=== PATIENT | female | born 1960 ===

== ENCOUNTER 2016-10-12 20:58 | Emergency (ER) | payer OTHER ==
[2016-10-12 20:58] VITALS: BMI 25.7
[2016-10-12 21:05] VITALS: BP 150/75; PULSE 82; RESP 18; TEMP 98; O2SAT 100
== END 2016-10-12 23:46 | disposition left against medical advice (07) ==
LOC: H.ER 20:58
DX: Z02.89 Encounter for other administrative examinations (principal)

== ENCOUNTER 2018-06-21 11:50 | Emergency (ER) | payer OTHER ==
[2018-06-21 12:00] VITALS: BMI 21.7
[2018-06-21 12:03] VITALS: RESP 18; TEMP 98
[2018-06-21 12:11] VITALS: O2SAT 98
[2018-06-21] MEDS ORDERED: Sodium Chloride 0.9% 1,000 ML IV STA (12:43)
--- NOTE | 2018-06-21 12:49 | ED PDOC ---
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 Went to the [facility] ED on monday had bloodwork performed told gastritis and Rx famotidine and omeprazole which she's now taking w mild improvement of pain but nausea and dizziness persisting. Has hx lupus takes plaquenil, also HTN meds. Denies bloody, dark or tarry stools, notes constipation. No vomiting but +nausea. Denies chest pain, SOB, fever, cough, neck pain or rash. Past Medical History Reviewed: Historical Data, Nursing Documentation, Vital Signs Vital Signs: Last Vital Signs Temp 98 F 06/21/18 12:00 Pulse 78 06/21/18 12:00 Resp 18 06/21/18 12:00 BP 168/78 H 06/21/18 12:00 Pulse Ox 98 06/21/18 12:08 - Medical History PMH: HTN, Hypercholesterolemia Denies: Alzheimer's Disease, Asthma, Atrial Fibrillation, Cardia Arrhythmia, COPD, Chronic Kidney Disease Other PMH: lupus - Surgical History Surgical History: Denies: CABG - Family History Family History: States: Unknown Family Hx - Living Arrangements Living Arrangements: With Family - Social History Current smoker - smoking cessation education provided: No - Immunization History Hx Tetanus Toxoid Vaccination: No Hx Influenza Vaccination: Yes Hx Pneumococcal Vaccination: No - Home Medications Home Medications: Ambulatory Orders Medication Instructions Recorded Hydroxychloroquine Sulfate 200 mg PO BID 10/24/14 [Plaquenil] Meloxicam [Mobic] 15 mg PO DAILY 10/24/14 Losartan/Hydrochlorothiazide 1 tab PO DAILY 12/10/15 [Hyzaar 50-12.5 Tablet] Naproxen [Naprosyn] 500 mg PO Q12H #20 tab 12/10/15 Oxycodone HCl/Acetaminophen 1 tab PO Q8H #10 tab 12/10/15 [Percocet 325 mg-5 mg] RX: Cyclobenzaprine [Flexeril] 10 mg PO HS 12/10/15 RX: Gabapentin [Neurontin] 300 mg PO HS 12/10/15 RX: Naproxen [Naprosyn] 500 mg PO BID 12/10/15 - Allergies Allergies/Adverse Reactions: Allergies Allergy/AdvReac Type Severity Reaction Status Date / Time No Known Allergies Allergy Verified 06/21/18 12:08 Review of Systems Constitutional: Positive for: Weakness. Negative for: Chills, Sweats, Weight loss Eyes: Negative for: Vision Change ENT: Negative for: Ear Pain, Ear Discharge, Throat Pain Cardiovascular: Negative for: Chest Pain, Palpitations Respiratory: Negative for: Cough, Shortness of Breath Gastrointestinal: Positive for: Nausea, Abdominal Pain. Negative for: Vomiting, Diarrhea, Constipation, Melena, Hematochezia, Hematemesis Genitourinary Female: Negative for: Dysuria Musculoskeletal: Negative for: Neck Pain, Back Pain Neurological: Positive for: Headache, Dizziness. Negative for: Weakness, Change in Speech, Confusion, Seizures Psych: Negative for: Anxiety Physical Exam - Reviewed Nursing Documentation Reviewed: Yes Vital Signs Reviewed: Yes - Physical Exam Appears: Positive for: Well, Non-toxic, No Acute Distress Head Exam: Positive for: ATRAUMATIC, NORMAL INSPECTION, NORMOCEPHALIC Skin: Positive for: Normal Color, Warm, DRY Eye Exam: Positive for: Normal appearance, EOMI, PERRL. Negative for: Scleral icterus ENT: Positive for: Normal ENT Inspection Neck: Positive for: Normal, Painless ROM Cardiovascular/Chest: Positive for: Regular Rate, Rhythm Respiratory: Positive for: CNT, Normal Breath Sounds Pulses-Radial (L): 3+/4+ Pulses-Radial (R): 3+/4+ Gastrointestinal/Abdominal: Positive for: Normal Exam, Soft. Negative for: Tenderness, Guarding Extremity: Positive for: Normal ROM. Negative for: Tenderness Neurologic/Psych: Positive for: Alert, Oriented. Negative for: Motor/Sensory Deficits - Laboratory Results Result Diagrams: 06/21/18 12:51 06/21/18 12:51 - ECG O2 Sat by Pulse Oximetry: 98 Disposition - Clinical Impression Clinical Impression: Abdominal pain, Gastritis - Patient ED Disposition Is Patient to be Admitted: Transfer of Care - Disposition Disposition: Transfer of Care Disposition Time: 15:00 Condition: IMPROVED Additional Instructions: follow up with your primary doctor Dr Lorenzo in 1-2 days take the anti acid medication you were given at [facility] Name return to the ED with any worsening or concerning symptoms Instructions: Gastritis, Stomach Ache and Stomach Upset Forms: [email or web address] (Wallisian) Patient Signed Over To: Lawrence Whatley
[2018-06-21 12:56] LABS: BASO % 0.6 % (0.0-2.0); EOS % 0.3 % (0.0-4.0); HEMOGLOBIN 12.9 g/dL (12.0-16.0); LYMPH # 0.9 K/uL (1.0-4.3); MEAN CELL VOLUME 83.7 fl (81.0-99.0); MEAN CORPUSCULAR HEMOGLOBIN 27.8 pg (27.0-31.0); MEAN CORPUSCULAR HGB CONC 33.3 g/dL (33.0-37.0); MEAN PLATELET VOLUME 7.1 fl (7.2-11.7); MONO # 0.3 K/uL (0.0-0.8); MONO % 5.3 % (0.0-10.0); NEUT # 4.3 K/uL (1.8-7.0); NEUT % 76.8 % (50.0-75.0); NRBC % 0.2 % (0.0-0.0); RBC 4.62 Mil/uL (3.80-5.20); RED CELL DISTRIBUTION WIDTH 13.8 % (11.5-14.5); WHITE BLOOD COUNT 5.6 K/uL (4.8-10.8)
[2018-06-21 13:05] LABS: ALB/GLOB RATIO 1.3 (1.0-2.1); ALBUMIN 4.7 g/dL (3.5-5.0); ALT/SGPT 25 U/L (9-52); AST/SGOT 29 U/L (14-36); BLOOD UREA NITROGEN 11 mg/dl (7-17); CALCIUM 9.7 mg/dL (8.4-10.2); GFR NON-AFRICAN AMERICAN > 60
[2018-06-21 14:00] LABS: URINE BILIRUBIN NEGATIVE (NEGATIVE); URINE CLARITY CLEAR (Clear); URINE COLOR STRAW (YELLOW); URINE GLUCOSE (UA) NEG (NEGATIVE); URINE LEUKOCYTE ESTERASE NEG Leu/uL (Negative); URINE PROTEIN NEGATIVE (NEGATIVE); URINE UROBILINOGEN 0.2-1.0 mg/dL (0.2-1.0)
[2018-06-21 14:01] LABS: URINE BLOOD TRACE (NEGATIVE)
--- NOTE | 2018-06-21 15:43 | RAD ---
Date of service: 06/21/2018 HISTORY: chest pain/ r/o infiltrate COMPARISON: 10/24/2014. TECHNIQUE: Chest PA and lateral FINDINGS: LUNGS: No active pulmonary disease. PLEURA: No significant pleural effusion identified. No pneumothorax apparent. CARDIOVASCULAR: No aortic atherosclerotic calcification present. Normal cardiac size. No pulmonary vascular congestion. OSSEOUS STRUCTURES: No significant abnormalities. VISUALIZED UPPER ABDOMEN: Normal. OTHER FINDINGS: None. IMPRESSION: No active disease. No significant interval change compared to the prior examination(s).
--- NOTE | 2018-06-21 15:55 | US ---
Date of service: 06/21/2018 HISTORY: upper abd pain x2 wks COMPARISON: 01/11/2014 abdominal ultrasound TECHNIQUE: Sonographic evaluation of the abdomen. FINDINGS: LIVER: Measures 10.1 cm. Normal echogenicity of the liver parenchyma. No mass. No intrahepatic bile duct dilatation.Incidental finding(s): Simple cyst right hepatic lobe 2.3 x 2.4 cm GALLBLADDER: Unremarkable. No gallstones. COMMON BILE DUCT: Measures 4.1 mm. No stones. No dilatation. PANCREAS: Obscured by overlying bowel gas. Non diagnostic assessment of the pancreas. RIGHT KIDNEY: Measures 5.5 x 11cm. Normal echogenicity. No calculus, mass, or hydronephrosis. LEFT KIDNEY: Measures 0.5 x 10.3cm. Normal echogenicity. No calculus, mass, or hydronephrosis. SPLEEN: Normal in size and contour. No mass. AORTA: No aneurysmal dilatation. IVC: Unremarkable. OTHER FINDINGS: None. IMPRESSION: No acute findings related to/ accounting for the clinical presentation. No significant interval change compared to the prior examination(s). Additional benign and/or incidental findings described above. Limitations of the current examination: Nondiagnostic study of pancreas.
--- NOTE | 2018-06-21 16:34 | ED PDOC ---
- Laboratory Results Result Diagrams: 06/21/18 12:51 06/21/18 12:51 - ECG O2 Sat by Pulse Oximetry: 98 (RA) Pulse Ox Interpretation: Normal Medical Decision Making Medical Decision Making: Time: [address] Vanessa, pending US. 1551 Abdomen US FINDINGS: LIVER: Measures 10.1 cm. Normal echogenicity of the liver parenchyma. No mass. No intrahepatic bile duct dilatation.Incidental finding(s): Simple cyst right hepatic lobe 2.3 x 2.4 cm GALLBLADDER: Unremarkable. No gallstones. COMMON BILE DUCT: Measures 4.1 mm. No stones. No dilatation. PANCREAS: Obscured by overlying bowel gas. Non diagnostic assessment of the pancreas. RIGHT KIDNEY: Measures 5.5 x 11cm. Normal echogenicity. No calculus, mass, or hydronephrosis. LEFT KIDNEY: Measures 0.5 x 10.3cm. Normal echogenicity. No calculus, mass, or hydronephros is. SPLEEN: Normal in size and contour. No mass. AORTA: No aneurysmal dilatation. IVC: Unremarkable. OTHER FINDINGS: None. IMPRESSION: No acute findings related to/ accounting for the clinical presentation. No significant interval change compared to the prior examination(s). Additional benign and/or incidental findings described above. Limitations of the current examination: Nondiagnostic study of pancreas. 1707 US reviewed and show no significant abnormality. Patient is tolerating PO and reports improvement of symptoms. Patient is stale for discharge. Scribe Attestation: Documented by Gely Nevarez, acting as a scribe for Lawrence Whatley MD. Provider Scribe Attestation: All medical record entries made by the Scribe were at my direction and personally dictated by me. I have reviewed the chart and agree that the record accurately reflects my personal performance of the history, physical exam, medical decision making, and the department course for this patient. I have also personally directed, reviewed, and agree with the discharge instructions and disposition. Disposition - Clinical Impression Clinical Impression: Abdominal pain, Gastritis - Disposition Disposition: Routine/Home Disposition Time: 17:07 Condition: IMPROVED Additional Instructions: follow up with your primary doctor Dr Lorenzo in 1-2 days take the anti acid medication you were given at [facility] Name return to the ED with any worsening or concerning symptoms Instructions: Gastritis, Stomach Ache and Stomach Upset Forms: [facility] (Swiss)
[2018-06-21 17:12] VITALS: BP 140/80; PULSE 67
--- NOTE | 2018-06-22 00:02 | CARD ---
APPROVED REPORT Date of service: 06/21/2018 EKG Measurement Heart [id number] <Conclusion> Normal sinus rhythm Normal ECG
== END 2018-06-21 17:11 | disposition home or self-care (01) ==
LOC: H.ER 11:50
DX: K29.70 Gastritis, unspecified, without bleeding (principal); R10.13 Epigastric pain; E78.00 Pure hypercholesterolemia, unspecified; I10 Essential (primary) hypertension; M32.9 Systemic lupus erythematosus, unspecified; Z79.899 Other long term (current) drug therapy
CPT/HCPCS: 71046; 76700; 80053; 81003; 83690; 84484; 85025; 85651; 93005; 96360; 99284; J2405; J7030

== ENCOUNTER 2018-09-20 14:14 | Emergency (ER) | payer OTHER ==
[2018-09-20 14:15] VITALS: BMI 21.7
[2018-09-20 14:20] VITALS: RESP 18; O2SAT 100
--- NOTE | 2018-09-20 14:51 | ED PDOC ---
HPI: General Adult Time Seen by Provider: 09/20/18 14:24 Chief Complaint (Nursing): Back Pain Chief Complaint (Provider): Left flank pain History Per: Patient History/Exam Limitations: no limitations Onset/Duration Of Symptoms: Persistent Additional History Per: Patient Additional Complaint(s): 58yo female, comes to ER reporting left flan pain, radiating to her left lower quadrant x 3 weeks. She reportd associated fever, but denies any dysuria, weakness, or paresthesias. Patient also reports mild nausea, but denies any vomiting or diarrhea. Patient denies any heavy lifting or strenuous activities. No additional complaints. PMD: Dr. Bill Past Medical History Reviewed: Historical Data, Nursing Documentation, Vital Signs Vital Signs: Last Vital Signs Temp 97.7 F 09/20/18 14:17 Pulse 82 09/20/18 14:17 Resp 18 09/20/18 14:17 BP 165/70 H 09/20/18 14:17 Pulse Ox 100 09/20/18 14:17 - Medical History PMH: HTN, Hypercholesterolemia Denies: Alzheimer's Disease, Asthma, Atrial Fibrillation, Cardia Arrhythmia, COPD, Chronic Kidney Disease - Surgical History Surgical History: Denies: CABG - Family History Family History: States: Unknown Family Hx - Immunization History Hx Tetanus Toxoid Vaccination: No Hx Influenza Vaccination: Yes Hx Pneumococcal Vaccination: No - Home Medications Home Medications: Ambulatory Orders Medication Instructions Recorded Hydroxychloroquine Sulfate 200 mg PO BID 10/24/14 [Plaquenil] Meloxicam [Mobic] 15 mg PO DAILY 10/24/14 Cyclobenzaprine [Flexeril] 10 mg PO HS 12/10/15 Gabapentin [Neurontin] 300 mg PO HS 12/10/15 Losartan/Hydrochlorothiazide 1 tab PO DAILY 12/10/15 [Hyzaar 50-12.5 Tablet] Naproxen [Naprosyn] 500 mg PO BID 12/10/15 Naproxen [Naprosyn] 500 mg PO Q12H #20 tab 12/10/15 Oxycodone HCl/Acetaminophen 1 tab PO Q8H #10 tab 12/10/15 [Percocet 325 mg-5 mg] Naproxen [Naprosyn] 500 mg PO Q12H #20 tab 09/20/18 - Allergies Allergies/Adverse Reactions: Allergies Allergy/AdvReac Type Severity Reaction Status Date / Time No Known Allergies Allergy Verified 09/20/18 14:17 Review of Systems ROS Statement: Except As Marked, All Systems Reviewed And Found Negative Gastrointestinal: Positive for: Nausea, Abdominal Pain. Negative for: Vomiting Genitourinary Female: Negative for: Dysuria Musculoskeletal: Positive for: Back Pain Neurological: Negative for: Weakness, Numbness Physical Exam - Reviewed Nursing Documentation Reviewed: Yes Vital Signs Reviewed: Yes - Physical Exam Appears: Positive for: Non-toxic, No Acute Distress Head Exam: Positive for: ATRAUMATIC, NORMAL INSPECTION, NORMOCEPHALIC Skin: Positive for: Normal Color, Warm, DRY Eye Exam: Positive for: Normal appearance Neck: Positive for: Normal, Painless ROM Cardiovascular/Chest: Positive for: Regular Rate, Rhythm, Chest Non Tender. Negative for: Tachycardia Respiratory: Positive for: Normal Breath Sounds. Negative for: Respiratory Distress Gastrointestinal/Abdominal: Positive for: Normal Exam, Soft. Negative for: Tenderness, Mass Back: Positive for: Normal Inspection. Negative for: L CVA Tenderness, R CVA Tenderness Extremity: Positive for: Normal ROM. Negative for: Pedal Edema Neurological/Psych: Positive for: Awake, Alert, Normal Tone, Oriented (x 3) - Laboratory Results Result Diagrams: 09/20/18 14:41 09/20/18 15:30 - ECG O2 Sat by Pulse Oximetry: 100 (RA) Pulse Ox Interpretation: Normal Medical Decision Making Medical Decision Making: Patient with back and left lower quadrant pain R/o vs. musculoskeletal etiology of symptoms Plan: -- Labs -- Urinalysis -- CT Abd/Pelvis w/o contrast Scribe Attestation: Documented by Patricia Moreno, acting as a scribe for Aroldo Gipson MD. Provider Scribe Attestation: All medical record entries made by the Scribe were at my direction and personally dictated by me. I have reviewed the chart and agree that the record accurately reflects my personal performance of the history, physical exam, medical decision making, and the department course for this patient. I have also personally directed, reviewed, and agree with the discharge instructions and disposition. Disposition - Clinical Impression Clinical Impression: Back strain - Patient ED Disposition Is Patient to be Admitted: No Counseled Patient/Family Regarding: Studies Performed, Diagnosis, Need For Followup, Rx Given - Disposition Referrals: [facility] [Outside] Disposition: Routine/Home Disposition Time: 17:42 Condition: FAIR Prescriptions: Naproxen [Naprosyn] 500 mg PO Q12H #20 tab Instructions: Low Back Pain (DC) Forms: [facility] (Irish) Print Language: BULGARIAN
[2018-09-20 15:05] LABS: BASO % 0.7 % (0.0-2.0); EOS # 0.1 K/uL (0.0-0.7); EOS % 1.1 % (0.0-4.0); HEMOGLOBIN 12.3 g/dL (12.0-16.0); LYMPH # 1.3 K/uL (1.0-4.3); LYMPH % 28.6 % (20.0-40.0); MEAN CELL VOLUME 80.9 fl (81.0-99.0); MEAN CORPUSCULAR HEMOGLOBIN 27.3 pg (27.0-31.0); MEAN CORPUSCULAR HGB CONC 33.7 g/dL (33.0-37.0); MEAN PLATELET VOLUME 7.3 fl (7.2-11.7); MONO # 0.3 K/uL (0.0-0.8); MONO % 6.3 % (0.0-10.0); NEUT # 2.8 K/uL (1.8-7.0); NEUT % 63.3 % (50.0-75.0); NRBC % 0.2 % (0.0-0.0); RBC 4.51 Mil/uL (3.80-5.20); WHITE BLOOD COUNT 4.5 K/uL (4.8-10.8)
[2018-09-20 15:05] LABS: URINE BILIRUBIN NEGATIVE (NEGATIVE); URINE BLOOD SMALL (NEGATIVE); URINE CLARITY CLEAR (Clear); URINE COLOR STRAW (YELLOW); URINE GLUCOSE (UA) NEG (NEGATIVE); URINE LEUKOCYTE ESTERASE NEG Leu/uL (Negative); URINE PROTEIN NEGATIVE (NEGATIVE); URINE UROBILINOGEN 0.2-1.0 mg/dL (0.2-1.0)
[2018-09-20 16:01] LABS: ALB/GLOB RATIO 1.3 (1.0-2.1); ALBUMIN 4.6 g/dL (3.5-5.0); ALT/SGPT 22 U/L (9-52); AST/SGOT 52 U/L (14-36); BLOOD UREA NITROGEN 11 mg/dl (7-17); CALCIUM 9.9 mg/dL (8.4-10.2); GFR NON-AFRICAN AMERICAN > 60
--- NOTE | 2018-09-20 17:29 | CT ---
Date of service: 09/20/2018 PROCEDURE: CT Abdomen and Pelvis without intravenous contrast HISTORY: r/o kidney stone COMPARISON: 06/21/2018renal US TECHNIQUE: Unenhanced. Neither IV nor oral contrast administered Radiation dose: Total exam DLP = inf_[id number]_dlp mGy-cm. This CT exam was performed using one or more of the following dose reduction techniques: Automated exposure control, adjustment of the mA and/or kV according to patient size, and/or use of iterative reconstruction technique. FINDINGS: LOWER THORAX: Unremarkable. LIVER: Unremarkable. No gross lesion or ductal dilatation. Incidental 4 cm cyst alejandra hepatis GALLBLADDER AND BILE DUCTS: Unremarkable. PANCREAS: Unremarkable. No gross lesion or ductal dilatation. SPLEEN: Unremarkable. ADRENALS: Unremarkable. No mass. KIDNEYS AND URETERS: Unremarkable. No hydronephrosis. No solid mass. VASCULATURE: Unremarkable. No aortic aneurysm. No atherosclerotic calcification or mural plaque present. BOWEL: Constipation without fecal impaction or obstruction. APPENDIX: Unremarkable. Normal appendix. PERITONEUM: Unremarkable. No free fluid. No free air. LYMPH NODES: Unremarkable. No enlarged lymph nodes. BLADDER: Unremarkable. REPRODUCTIVE: Unremarkable. BONES: No acute fracture. OTHER FINDINGS: None. IMPRESSION: No significant or acute findings to account for/ related to the clinical presentation.
[2018-09-20 18:08] VITALS: BP 150/79; PULSE 74; TEMP 98.2
== END 2018-09-20 18:00 | disposition home or self-care (01) ==
LOC: H.ER 14:14
DX: M54.9 Dorsalgia, unspecified (principal)